=== PATIENT | male | born 1975 | race African-American/Black ===

== ENCOUNTER 2017-12-01 19:46 | Inpatient (IN) | payer OTHER ==
[~2017-12-01] VITALS: Ht 175.3 cm; Wt 158.4 kg
[2017-12-01 21:32] LABS: Basophils # (auto) 0.1 uL; Eosinophils # (auto) 0.1 uL; Monocytes # (auto) 0.9 uL
[2017-12-01 21:34] LABS: Basophils % (auto) 0.8 % (0.0-2.0); Eosinophils % (auto) 0.9 % (0.0-7.0); Lymphocytes # (auto) 1.5 uL; Lymphocytes % (auto) 19.3 % (10.0-50.0); Mean Corpuscular Hemoglobin 27.8 pg (28.0-32.0); Mean Corpuscular Hgb Conc. 33.8 g/dL (32.0-36.0); Mean Corpuscular Volume 82.3 fL (80.0-100.0); Monocytes % (auto) 11.4 % (0.0-12.0); Neutrophils # (auto) 5.3 uL; Neutrophils % (auto) 67.6 % (37.0-80.0); Nucleated Red Blood Cells % 2.2 %; Platelet Count (auto) 252 10^3/uL (140-450); Red Blood Cells 7.61 10^6/uL (4.5-5.90); Red Cell Distribution Width 16.8 % (11.8-14.3); White Blood Cell 7.9 10^3/uL (4.4-10.8)
[2017-12-01 21:50] LABS: Albumin 3.3 g/dL (3.4-5.0); Anion Gap 7 (5-15); Blood Urea Nitrogen 17 mg/dL (7-18); Calcium 8.2 mg/dL (8.5-10.1); Carbon Dioxide 34 mmol/L (21-32); Chloride 93 mmol/L (98-107); Magnesium 2.4 mg/dL (1.6-2.6); Potassium 4.4 mmol/L (3.5-5.1); Sodium 134 mmol/L (136-145)
[2017-12-01 21:54] LABS: Alanine Aminotransferase 29 U/L (16-61); Alkaline Phosphatase 52 U/L (45-117); Aspartate Aminotransferase 22 U/L (15-37); BUN/Creatinine Ratio 13.2; Bilirubin, Total 1.1 mg/dL (0.2-1.0); GFR African American 79 mL/min; GFR Non-African American 66 mL/min; Glucose 90 mg/dL (74-106); Total Protein 8.9 g/dL (6.4-8.2)
[2017-12-01 22:16] LABS: INR 1.27 (0.9-1.15); Partial Thromboplastin Time 31.5 sec (23.78-33.04); Prothrombin Time 13.4 sec (9.27-12.13)
[2017-12-01 22:37] LABS: Urine Bacteria NONE SEEN /hpf (None Seen); Urine Blood Negative /uL (Negative); Urine Hyaline Cast FEW /lpf (0 - 2); Urine Mucus FEW (None Seen); Urine Specific Gravity 1.026 (1.001-1.035); Urine WBC 6 /hpf (0 - 3)
[2017-12-01 22:54] LABS: Hematocrit 62.6 % (41.0-53.0)
[2017-12-01 23:02] LABS: Hemoglobin 21.2 g/dL (13.5-17.5)
[2017-12-02] VITALS (9 sets, daily range): BP systolic 95–128; BP diastolic 58–91
[2017-12-02] MEDS ORDERED: LORazepam 2MG/ML-1ML VIAL IV PRN (05:30)
[2017-12-02] MEDS ORDERED: MORPHINE SULFATE 4 MG/ML SYR/VIAL IV PRN (05:30)
[2017-12-02] MEDS ORDERED: HYDROcodone-ACET 5/325MG TAB PO PRN (05:30)
[2017-12-02] MEDS ORDERED: NITROGLYCERIN 0.4 MG SL TAB SL PRN (05:30)
[2017-12-02] MEDS ORDERED: ONDANSETRON HCL 4 MG/2 ML VIAL IV PRN (05:30)
[2017-12-02] MEDS ORDERED: FUROSEMIDE 20 MG/2 ML VIAL IV ONE (05:30)
[2017-12-02] MEDS ORDERED: ACETAMINOPHEN 500 MG TAB PO PRN (05:30)
[2017-12-02] MEDS ORDERED: ALBUTEROL SULF 2.5 MG/0.5ML(0.5%) NEB SOLN NEB PRN (06:45)
[2017-12-02 07:40] LABS: Basophils # (auto) 0 uL; Eosinophils # (auto) 0.1 uL; Lymphocytes # (auto) 1.4 uL; Monocytes # (auto) 0.9 uL
[2017-12-02 07:43] LABS: Basophils % (auto) 0.4 % (0.0-2.0); Eosinophils % (auto) 0.7 % (0.0-7.0); Lymphocytes % (auto) 17.4 % (10.0-50.0); Mean Corpuscular Hemoglobin 28.4 pg (28.0-32.0); Mean Corpuscular Hgb Conc. 33.9 g/dL (32.0-36.0); Mean Corpuscular Volume 83.5 fL (80.0-100.0); Monocytes % (auto) 11.1 % (0.0-12.0); Neutrophils # (auto) 5.6 uL; Neutrophils % (auto) 70.4 % (37.0-80.0); Nucleated Red Blood Cells % 0.7 %; Platelet Count (auto) 231 10^3/uL (140-450); Red Blood Cells 7.49 10^6/uL (4.5-5.90); Red Cell Distribution Width 16.9 % (11.8-14.3)
[2017-12-02 08:01] LABS: Calcium 8.6 mg/dL (8.5-10.1); Potassium 4.2 mmol/L (3.5-5.1)
[2017-12-02 08:03] LABS: BUN/Creatinine Ratio 15.5
[2017-12-02 08:20] LABS: Hematocrit 62.5 % (41.0-53.0)
[2017-12-02 08:22] LABS: Hemoglobin 21.2 g/dL (13.5-17.5)
[2017-12-02 10:34] LABS: Alcohol, Urine < 3.0 mg/dL (0-5); Amphetamine Screen, Urine POSITIVE (NEGATIVE); Barbiturate Scree,Urine NEGATIVE (NEGATIVE); Benzodiazephine Screen, Urine NEGATIVE (NEGATIVE); Cannabinoid Screen, Urine NEGATIVE (NEGATIVE); Cocaine Screen, Urine NEGATIVE (NEGATIVE); Opiate Scree,Urine NEGATIVE (NEGATIVE); Phencyclidine Screen, Urine NEGATIVE (NEGATIVE)
[2017-12-02] MEDS ORDERED: IPRATROPIUM BROM 0.5 MG/2.5ML INH SOL NEB PRN (14:45)
[2017-12-02] MEDS ORDERED: ASPirin-EC 81 mg tab PO ONE (14:45)
[2017-12-02] MEDS: SODIUM CHLORIDE 0.9% 1,000 ML IV SCH (18:11)
[2017-12-02] MEDS ORDERED: HYDROXYUREA 500 MG CAP PO ONE (22:00)
[2017-12-02] MEDS: HYDROXYUREA 500 MG CAP PO SCH (22:11)
[2017-12-03 05:00] VITALS: BP 118/76
[2017-12-03 06:19] LABS: Basophils # (auto) 0 uL; Hemoglobin 19.8 g/dL (13.5-17.5); Lymphocytes # (auto) 1.1 uL; Mean Corpuscular Volume 83.2 fL (80.0-100.0); White Blood Cell 5.8 10^3/uL (4.4-10.8)
[2017-12-03 06:22] LABS: Basophils % (auto) 0.2 % (0.0-2.0); Eosinophils # (auto) 0.1 uL; Lymphocytes % (auto) 19.5 % (10.0-50.0); Mean Corpuscular Hgb Conc. 33.7 g/dL (32.0-36.0); Monocytes % (auto) 16.5 % (0.0-12.0); Neutrophils # (auto) 3.6 uL; Neutrophils % (auto) 62.8 % (37.0-80.0); Nucleated Red Blood Cells % 0.3 %; Platelet Count (auto) 227 10^3/uL (140-450); Red Blood Cells 7.08 10^6/uL (4.5-5.90); Red Cell Distribution Width 16.8 % (11.8-14.3)
[2017-12-03 06:38] LABS: Calcium 8.2 mg/dL (8.5-10.1); Hematocrit 58.9 % (41.0-53.0); Potassium 4.8 mmol/L (3.5-5.1)
[2017-12-03 06:40] LABS: BUN/Creatinine Ratio 13.3
[2017-12-03 08:00] VITALS: BP 129/70
[2017-12-03 08:15] VITALS: BP 129/70
[2017-12-03] MEDS: ASPirin-EC 81 mg tab PO SCH (10:26)
[2017-12-03] MEDS: POTASSIUM CHL 10 Meq TABLET PO SCH (10:26)
[2017-12-03] MEDS: FUROSEMIDE 40 MG/4 ML VIAL IV SCH (10:27)
[2017-12-03] MEDS: HYDROXYUREA 500 MG CAP PO SCH ×2 (10:36→22:06)
[2017-12-03] MEDS: SODIUM CHLORIDE 0.9% 1,000 ML IV SCH (10:45)
[2017-12-03 12:14] VITALS: BP 132/65
[2017-12-03 16:55] VITALS: BP 134/77
[2017-12-03 22:00] VITALS: BP 113/69
[2017-12-04 05:00] VITALS: BP 114/67
[2017-12-04 06:38] LABS: Hematocrit 55.7 % (41.0-53.0); Hemoglobin 18.7 g/dL (13.5-17.5)
[2017-12-04] MEDS: SODIUM CHLORIDE 0.9% 1,000 ML IV SCH (07:00)
[2017-12-04 08:11] VITALS: BP 114/73
[2017-12-04] MEDS: FUROSEMIDE 40 MG/4 ML VIAL IV SCH (10:24)
[2017-12-04] MEDS: ASPirin-EC 81 mg tab PO SCH (10:24)
[2017-12-04] MEDS: POTASSIUM CHL 10 Meq TABLET PO SCH (10:24)
[2017-12-04] MEDS: HYDROXYUREA 500 MG CAP PO SCH ×2 (10:53→23:01)
[2017-12-04 11:25] VITALS: BP 136/77
[2017-12-04 12:23] VITALS: BP 136/77
[2017-12-04] MEDS ORDERED: IOHEXOL 350 MG/ML 100ML IJ ONE (16:23)
[2017-12-04 17:31] VITALS: BP 101/80
[2017-12-04 22:00] VITALS: BP 114/70
[2017-12-05] VITALS (7 sets, daily range): BP systolic 100–128; BP diastolic 57–90
[2017-12-05] MEDS: SODIUM CHLORIDE 0.9% 1,000 ML IV SCH (02:45)
[2017-12-05 06:39] LABS: Hematocrit 55.3 % (41.0-53.0); Hemoglobin 18.9 g/dL (13.5-17.5)
[2017-12-05 06:59] LABS: Potassium 5.3 mmol/L (3.5-5.1)
[2017-12-05 07:09] LABS: BUN/Creatinine Ratio 12.8; Calcium 8.2 mg/dL (8.5-10.1)
[2017-12-05] MEDS: HYDROXYUREA 500 MG CAP PO SCH ×2 (10:20→22:03)
[2017-12-05] MEDS: POTASSIUM CHL 10 Meq TABLET PO SCH (10:20)
[2017-12-05] MEDS: ASPirin-EC 81 mg tab PO SCH (10:21)
[2017-12-05] MEDS: FUROSEMIDE 40 MG/4 ML VIAL IV SCH (10:24)
[2017-12-05] MEDS ORDERED: HYDROcodone-ACET 5/325MG TAB PO PRN (13:00)
[2017-12-05] MEDS ORDERED: HYDROXYUREA 500 MG CAP PO ONE (15:30)
[2017-12-06 02:20] VITALS: BP 128/90
[2017-12-06 04:56] VITALS: BP 115/61
[2017-12-06 06:09] LABS: Hematocrit 52.9 % (41.0-53.0); Hemoglobin 17.8 g/dL (13.5-17.5)
[2017-12-06 06:18] LABS: Potassium 3.8 mmol/L (3.5-5.1)
[2017-12-06 06:22] LABS: BUN/Creatinine Ratio 14.7; Calcium 8.8 mg/dL (8.5-10.1)
[2017-12-06 09:00] VITALS: BP 117/61
[2017-12-06] MEDS: HYDROXYUREA 500 MG CAP PO SCH ×2 (10:06→22:23)
[2017-12-06] MEDS: FUROSEMIDE 40 MG/4 ML VIAL IV SCH (10:06)
[2017-12-06] MEDS: ASPirin-EC 81 mg tab PO SCH (10:07)
[2017-12-06 13:00] VITALS: BP 99/61
[2017-12-06 17:00] VITALS: BP 114/56
[2017-12-06 21:53] VITALS: BP 127/70
[2017-12-07 05:00] VITALS: BP 109/61
[2017-12-07 09:11] VITALS: BP 127/74
[2017-12-07] MEDS: HYDROXYUREA 500 MG CAP PO SCH ×2 (09:51→21:01)
[2017-12-07] MEDS: FUROSEMIDE 40 MG/4 ML VIAL IV SCH (09:51)
[2017-12-07] MEDS: ASPirin-EC 81 mg tab PO SCH (09:51)
[2017-12-07 13:00] VITALS: BP 116/70
[2017-12-07 17:00] VITALS: BP 92/57
[2017-12-07 22:00] VITALS: BP 136/72
[2017-12-08 05:00] VITALS: BP 125/85
[2017-12-08 09:00] VITALS: BP 113/71
[2017-12-08] MEDS: FUROSEMIDE 40 MG/4 ML VIAL IV SCH (10:07)
[2017-12-08] MEDS: HYDROXYUREA 500 MG CAP PO SCH (10:07)
[2017-12-08] MEDS: ASPirin-EC 81 mg tab PO SCH (10:07)
[2017-12-08 13:00] VITALS: BP 105/73
[2017-12-08 13:22] LABS: Albumin 3.2 g/dL (3.4-5.0); Calcium 8.9 mg/dL (8.5-10.1); Potassium 4.3 mmol/L (3.5-5.1)
[2017-12-08 13:27] LABS: BUN/Creatinine Ratio 15.3; Bilirubin, Total 0.8 mg/dL (0.2-1.0); Total Protein 8.6 g/dL (6.4-8.2)
[2017-12-08] MEDS ORDERED: ALBUAER3 IN (14:10)
[2017-12-08] MEDS ORDERED: HYD500C PO (14:10)
[2017-12-08] MEDS ORDERED: ASP81EC PO (14:10)
[2017-12-08 14:40] LABS: Basophils # (auto) 0.1 uL; Basophils % (auto) 0.9 % (0.0-2.0); Eosinophils # (auto) 0.2 uL; Eosinophils % (auto) 2.8 % (0.0-7.0); Hematocrit 54.6 % (41.0-53.0); Hemoglobin 18.2 g/dL (13.5-17.5); Lymphocytes # (auto) 1.4 uL; Lymphocytes % (auto) 24.9 % (10.0-50.0); Mean Corpuscular Hemoglobin 27.6 pg (28.0-32.0); Mean Corpuscular Hgb Conc. 33.3 g/dL (32.0-36.0); Mean Corpuscular Volume 82.9 fL (80.0-100.0); Monocytes # (auto) 0.4 uL; Monocytes % (auto) 6.7 % (0.0-12.0); Neutrophils # (auto) 3.7 uL; Neutrophils % (auto) 64.7 % (37.0-80.0); Nucleated Red Blood Cells % 0.2 %; Platelet Count (auto) 257 10^3/uL (140-450); Red Blood Cells 6.59 10^6/uL (4.5-5.90); Red Cell Distribution Width 16.4 % (11.8-14.3); White Blood Cell 5.8 10^3/uL (4.4-10.8)
[2017-12-08 17:00] VITALS: BP 128/74
== END 2017-12-08 19:20 | disposition left against medical advice (07) | DRG 133 ==
LOC: ER 19:46 → TELE 19:47 → TELE-WESTW 12-02 10:45
PROVIDERS: ADMIT Nurse Practitioner Family; ATTEND Internal Medicine
PROC: 5A09357 Assistance with Respiratory Ventilation, Less than 24 Consecutive Hours, Continuous Positive Airway Pressure (ICD-10-PCS; principal; 2017-12-02)
PROC: 5A09357 Assistance with Respiratory Ventilation, Less than 24 Consecutive Hours, Continuous Positive Airway Pressure (ICD-10-PCS; 2017-12-03)
PROC: 5A09357 Assistance with Respiratory Ventilation, Less than 24 Consecutive Hours, Continuous Positive Airway Pressure (ICD-10-PCS; 2017-12-04)
PROC: 5A09357 Assistance with Respiratory Ventilation, Less than 24 Consecutive Hours, Continuous Positive Airway Pressure (ICD-10-PCS; 2017-12-05)
PROC: 5A09357 Assistance with Respiratory Ventilation, Less than 24 Consecutive Hours, Continuous Positive Airway Pressure (ICD-10-PCS; 2017-12-06)
PROC: 5A09357 Assistance with Respiratory Ventilation, Less than 24 Consecutive Hours, Continuous Positive Airway Pressure (ICD-10-PCS; 2017-12-07)
PROC: 5A09357 Assistance with Respiratory Ventilation, Less than 24 Consecutive Hours, Continuous Positive Airway Pressure (ICD-10-PCS; 2017-12-08)
DX: J96.21 Acute and chronic respiratory failure with hypoxia (principal); I50.33 Acute on chronic diastolic (congestive) heart failure; E87.2 Acidosis; I27.81 Cor pulmonale (chronic); D75.1 Secondary polycythemia; E66.2 Morbid (severe) obesity with alveolar hypoventilation; I11.0 Hypertensive heart disease with heart failure; R07.89 Other chest pain; J96.22 Acute and chronic respiratory failure with hypercapnia; Z53.21 Procedure and treatment not carried out due to patient leaving prior to being seen by health care provider; F15.10 Other stimulant abuse, uncomplicated; F17.210 Nicotine dependence, cigarettes, uncomplicated; Z68.43 Body mass index [BMI] 50.0-59.9, adult
CPT/HCPCS: 36415; 36600; 71045; 71275; 80048; 80053; 80061; 80307; 81001; 82668; 82728; 82805; 83540; 83550; 83735; 83880; 84443; 84484; 85014; 85018; 85025; 85379; 85610; 85730; 93005; 93306; 94640; 94660; 96361; 96374